=== PATIENT | female | born 1995 | race African-American/Black ===

== ENCOUNTER 2017-07-09 12:32 | Emergency (ER) | payer OTHER ==
[2017-07-09] MEDS ORDERED: Sodium Chloride 0.9% 10 ML Syringe FLUSH PRN ×2 (13:27→15:20)
[2017-07-09] MEDS ORDERED: Sodium Chloride 0.9% 1,000 ML IV SCH (13:30)
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
[2017-07-09] MEDS ORDERED: Iopamidol 755 Mg/ML 100 ML Bottle IVPUSH ONE (15:20)
[2017-07-09] MEDS ORDERED: Sodium Chloride 0.9% 100 ML IV SCH (15:30)
[2017-07-09 17:25] VITALS: BP 105/64
--- NOTE | 2017-07-10 08:58 | CR ---
Chest: Frontal view of the chest was obtained. Comparison: No previous chest x-ray. Heart size and mediastinum are within normal limits. Metallic density is seen overlying the spine most likely outside the patient. Lungs are clear. Minimal scoliosis is noted. Impression: 1. Incidental findings. Nothing acute is appreciated on frontal chest x-ray. Diagnostic code #2
--- NOTE | 2017-07-10 18:24 | CT ---
CT chest Technique: Multiple axial sections were obtained through the chest. Intravenous contrast was utilized. Study has been performed as a pulmonary angiogram protocol. Findings: Pulmonary arteries are well opacified. No filling defects are seen to indicate pulmonary embolism. Visualized upper abdominal structures are within normal limits. No pericardial thickening is seen. No mediastinal mass or adenopathy is seen. Normal thymic tissue is seen within the superior mediastinum. Right lobe of the thyroid gland is slightly enlarged. Aorta shows no abnormality. Lungs are clear with no pulmonary densities. No pleural effusions are seen. Impression: 1. Enlarged right lobe of the thyroid gland. Thyroid ultrasound could be considered to further evaluate. 2. No findings of pulmonary embolism. Other portions of the CT exam of the chest appear within normal limits. Diagnostic code #3 Mostly agree with preliminary report issued by [facility], additional note of enlarged right thyroid lobe for which ultrasound could be considered ([facility] preliminary report dictated on 07/09/17, 5:05 PM Central Time)
== END 2017-07-09 16:55 | disposition home or self-care (01) ==
LOC: JD.ED 12:32
DX: M79.652 Pain in left thigh (principal); R07.9 Chest pain, unspecified; Z86.711 Personal history of pulmonary embolism; Z86.718 Personal history of other venous thrombosis and embolism; Z91.011 Allergy to milk products
CPT/HCPCS: 36415; 71010; 71275; 80053; 81001; 84703; 85025; 85379; 85610; 85730; 86140; 93005; 96360; 96361; 99285; J7030; J7040; J7050; Q9967; 99284